=== PATIENT | female | born 1995 | race Caucasian/White ===

== ENCOUNTER 2020-07-02 06:34 | Emergency (ER) | payer OTHER ==
[2020-07-02 07:24] LABS: HEMOGLOBIN 14.2 gm/dl (12.3-15.3); RED BLOOD COUNT 4.52 M/UL (4.00-5.10)
[2020-07-02 07:54] LABS: BUN/CREATININE RATIO 12 (0-10)
[2020-07-02] MEDS ORDERED: FLAGYL500 MG PO (09:14)
[2020-07-02] MEDS ORDERED: CIPRO500 MG PO (09:14)
== END 2020-07-02 10:50 | disposition home or self-care (01) ==
LOC: ER1 06:34
PROVIDERS: Emergency Medicine
DX: R10.9 Unspecified abdominal pain (principal); R19.7 Diarrhea, unspecified; E87.6 Hypokalemia; R11.10 Vomiting, unspecified; F17.210 Nicotine dependence, cigarettes, uncomplicated
CPT/HCPCS: 80053; 83690; 84703; 85025; 96374; 96375; 99284; J2270; J2405; Q9967